=== PATIENT | female | born 2000 | race Hispanic/Latino ===

== ENCOUNTER 2019-06-02 20:50 | Inpatient (IN) | payer OTHER ==
[2019-06-02] MEDS ORDERED: TERBUTALINE 1 MG/1 ML INJ IVP PRN (22:17)
[2019-06-02] MEDS ORDERED: AMPICILLIN/NS 2 GM/100 ML 2 GM/100 ML BAG IV ONE (22:17)
[2019-06-02] MEDS ORDERED: ONDANSETRON 4 MG/2 ML INJ IV PRN (22:17)
[2019-06-02] MEDS ORDERED: TERBUTALINE 1 MG/1 ML INJ SUB-Q PRN (22:17)
[2019-06-02] MEDS ORDERED: MORPHINE 2 MG/1 ML INJ IV PRN (22:22)
[2019-06-02 22:35] LABS: Hematocrit 28.5 % (30.3-42.9); Hemoglobin 9.6 gm/dl (10.1-14.3); Mean Corpuscular HGB Conc 34 % (30-34); Mean Corpuscular Volume 82 fl (79-97); Platelet Count 326 K/mm3 (140-440); Red Blood Count 3.48 M/mm3 (3.65-5.03)
[2019-06-02] MEDS: AMPICILLIN/NS 2 GM/100 ML 2 GM/100 ML BAG IV SCH (23:10)
[2019-06-02] MEDS: LACTATED RINGERS 1,000 ML IV SCH (23:14)
[2019-06-02] MEDS: BETAMET ACET/BETAMET NA PH 6 MG/ML INJ 5 ML MDV IM SCH (23:14)
[2019-06-02 23:48] LABS: Bilirubin,Urine NEG (Negative); Blood,Urine NEG (Negative); Color,Urine Yellow (Yellow); Mucus,Urine FEW /HPF; Protein,Urine <15 mg/dL mg/dL (Negative)
[2019-06-03] MEDS ORDERED: ceFAZolin/NS 1 GM/50 ML 1 GM/50 ML BAG IV SCH (02:00)
[2019-06-03] MEDS: AMPICILLIN/NS 2 GM/100 ML 2 GM/100 ML BAG IV SCH ×3 (05:06→17:47)
[2019-06-03] MEDS: LACTATED RINGERS 1,000 ML IV SCH ×4 (05:06→23:13)
--- NOTE | 2019-06-03 07:58 | Ultrasound Report ---
ULTRASOUND OBSTETRIC FOLLOW-UP ULTRASOUND BIOPHYSICAL PROFILE INDICATION / CLINICAL INFORMATION: LABOR. Clinical Gestational Age (GA): 35 weeks 2 days COMPARISON: None available. FINDINGS: BREATHING MOVEMENT = 0 GROSS BODY MOVEMENT = 2 TONE = 2 QUALITATIVE AMNIOTIC FLUID VOLUME = 2 TOTAL BIOPHYSICAL SCORE = 6/8 HEART RATE (beats per minute): 125 bpm AMNIOTIC FLUID INDEX (cm) = 11.8 cm (normal = 7-24 cm) PRESENTATION: Cephalic. BPD 9.0 cm, 36 weeks 3 days HC 31.0 cm, 34 weeks 5 days AC 31.6 cm, 35 weeks 3 days Femur length 6.7 cm, 34 weeks 4 days Estimated weight is 2629 g. anatomical survey was not performed. ADDITIONAL FINDINGS: Placenta is anteriorly located without previa. IMPRESSION: 1. Biophysical Score = 6/8 2. Single viable IUP in a cephalic presentation with estimated gestational age of 35 weeks 2 days. No sonographic abnormality. Signer Name: Johanna Castillo MD Signed: 06/03/2019 7:54 AM Workstation Name: [id number]
--- NOTE | 2019-06-03 10:38 | History and Physical Report ---
History of Present Illness Date of examination: 06/03/19 Date of admission: 06/02/19 21:32 Chief complaint: Leaking fluid History of present illness: 18yo G 1 P 0 @ 35 weeks 2 days here with c/o leaking fluid since 06/02/19 @ 19:40. +Nitrazine test in triage. Pt denies recent sexual intercourse. OBUS done 06/02/19: EGA 35w2d, EVERARDO 11.8cm, BPP 6/8. She reports +FMs & occasional UCs but denies VB. She is a [facility] patient. No records are available. Pt reports she was seen at the office yesterday and informed she is anemic. Iron pills sent to the pharmacy but pt never had the time to pick them up. Past History Past Medical History: no pertinent history Past Surgical History: no surgical history Family/Genetic History: diabetes Social history: single, lives with family, full code. denies: smoking, alcohol abuse, prescription drug abuse, IV drug use - Obstetrical History Expected Date of Delivery: 07/06/19 Actual Gestation: 35 Week(s) 2 Day(s) : 1 Para: 0 Hx # Term Pregnancies: 0 Number of Pregnancies: 0 Spontaneous Abortions: 0 Induced : 0 Number of Living Children: 0 Medications and Allergies Allergies Allergy/AdvReac Type Severity Reaction Status Date / Time No Known Allergies Allergy Verified 06/02/19 21:37 Active Meds: Active Medications Lactated Ringer's (Lactated Ringers) 1,000 mls @ 125 mls/hr IV DIRECT BRITNEY Last Admin: 06/03/19 06:56 Dose: 125 mls/hr Documented by: Ampicillin Sodium (Ampicillin/Ns 2 Gm/100 Ml) 2 gm in 100 mls @ 100 mls/hr IV Q6HR BRITNEY; Protocol Stop: 06/04/19 18:59 Last Admin: 06/03/19 05:06 Dose: 100 mls/hr Documented by: Morphine Sulfate (Morphine) 2 mg IV Q4H PRN PRN Reason: Pain, Moderate (4-6) Ondansetron HCl (Zofran) 4 mg IV Q8H PRN PRN Reason: Nausea And Vomiting Terbutaline Sulfate (Brethine) 0.25 mg SUB-Q ONCE PRN PRN Reason: Hyperstimulation/Hypertonicity Terbutaline Sulfate (Brethine) 0.25 mg IVP ONCE PRN PRN Reason: Hyperstimulation/Hypertonicity Review of Systems All systems: negative - Vital Signs Vital signs: Vital Signs Temp Pulse Resp BP Pulse Ox 98.5 F 81 18 123/75 99 06/02/19 21:43 06/02/19 21:43 06/02/19 21:43 06/02/19 21:43 06/02/19 21:43 Temp Pulse Resp BP Pulse Ox 97.8 F 85 16 120/64 87 06/03/19 08:44 06/03/19 10:32 06/03/19 08:44 06/03/19 10:31 06/03/19 10:32 - Obstetrical FHR: auscultation normal, category 1 FHR comments: baseline 120, moderate variability, 15x15 accels, no decels Uterine Contraction Monitor Mode: External Cervical Dilatation: 2 Cervical Effacement Percentage: 50 station: -3 Uterine Contraction Pattern: Irregular Results Result Diagrams: 06/02/19 22:00 Abnormal lab results 06/02/19 Range/Units 22:00 WBC 14.4 H (4.5-11.0) K/mm3 RBC 3.48 L (3.65-5.03) M/mm3 Hgb 9.6 L (10.1-14.3) gm/dl Hct 28.5 L (30.3-42.9) % RDW 13.0 L (13.2-15.2) % All other labs normal. Assessment and Plan - Patient Problems (1) 35 weeks gestation of Current Visit: Yes Status: Acute (2) premature rupture of membranes in third trimester Current Visit: Yes Status: Acute Plan to address problem: Admit to L&D with routine labor orders Continue current management initiated by Dr. House: 2 doses of Celestone 12mg IM x24 hrs, Ampicillin 2gm IV q6hr No fluid noted during SVE and EVERARDO was 11.8. If no active labor, will repeat EVERARDO @ 21:00 (3) Anemia affecting first Current Visit: Yes Status: Acute Plan to address problem: Iron therapy initiated
[2019-06-03] MEDS: BETAMET ACET/BETAMET NA PH 6 MG/ML INJ 5 ML MDV IM SCH ×2 (11:27→23:14)
[2019-06-03] MEDS: PRENATAL VIT27-FE FUMARATE-FOLIC ACID VIT TAB PO SCH (11:39)
[2019-06-03] MEDS ORDERED: FERROUS SULFATE 325 MG TAB PO ONE (11:48)
[2019-06-03] MEDS: FERROUS SULFATE 325 MG TAB PO SCH ×2 (14:20→22:32)
[2019-06-03] MEDS ORDERED: FAMOTIDINE 20 MG/2 ML INJ IV ONE (14:30)
[2019-06-03 15:49] LABS: Amphetamine Screen,Urine PRESUMPTIVE NEGATIVE; Benzodiazepines Screen,Urine PRESUMPTIVE NEGATIVE; Cocaine Screen,Urine PRESUMPTIVE NEGATIVE; Methadone Screen,Urine PRESUMPTIVE NEGATIVE; Opiate Screen,Urine PRESUMPTIVE NEGATIVE
[2019-06-03 16:02] LABS: Cannabinoid Screen,Urine PRESUMPTIVE POSITIVE
--- NOTE | 2019-06-03 20:58 | Event Note ---
Date: 06/03/19 Assumed care of patient at 5:30 PM. Patient is here for possible ruptured membranes. Performed speculum exam: moderate amount of pooling noted in p osterior vagina, clear fluid. Fern test positive. Consulted with Dr. Scott re: this patient. Dr. Scott states to observe patient overnight and start Pitocin tomorrow morning. Patient is due to get another Celestone injection tonight. IV Ampicillin continues.
--- NOTE | 2019-06-03 22:04 | Ultrasound Report ---
US OB limited INDICATION / CLINICAL INFORMATION: Premature Rupture of Membranes. COMPARISON: 06/02/2019 FINDINGS: Viable single intrauterine gestation with heart rate 144 bpm. Fetus is in cephalic presentation . The EVERARDO is 9. Signer Name: Gurpreet Tamayo MD Signed: 06/03/2019 10:00 PM Workstation Name: [id number]
[2019-06-03] MEDS ORDERED: BETAMET ACET/BETAMET NA PH 6 MG/ML INJ 5 ML MDV IM ONE (23:00)
[2019-06-04] MEDS: AMPICILLIN/NS 2 GM/100 ML 2 GM/100 ML BAG IV SCH ×3 (00:23→12:37)
--- NOTE | 2019-06-04 08:19 | Progress Note ---
Assessment and Plan A: at 35 weeks, 3 days gestation. PPROM. P: Pitocin augmentation of labor. Discussed with patient Pitocin for augmentation of labor. Patient consented to Pitocin augmentation of labor. Continue IV antibiotics. Subjective - Subjective Date of service: 06/04/19 Principal diagnosis: PPROM at 35 weeks, 3 days gestation Interval history: Patient is here for PPROM. She has received full course of steroids and is receiving IV Ampicillin. SROM has been confirmed with SSE and fern test. SVE 2.5/70/-3. Patient is to receive Pitocin for augmentation of labor. Pitocin orders put in; discussed Pitocin augmentation of labor with patient and patient consented to Pitocin augmentation of labor. Consulted Dr. Melvin re: this patient and he states he agrees with POC. Patient reports: loss of fluid, movement normal, no new complaints, no vaginal bleeding Objective - Vital Signs Vital Signs: Vital Signs - 12hr 06/03/19 06/03/19 06/03/19 20:22 20:27 20:30 Temperature Pulse Rate 74 74 74 Respiratory Rate Blood Pressure 106/56 Blood Pressure [Left] O2 Sat by Pulse 98 97 94 Oximetry 06/03/19 06/03/19 06/03/19 20:32 20:37 20:42 Temperature Pulse Rate 78 83 78 Respiratory Rate Blood Pressure Blood Pressure [Left] O2 Sat by Pulse 97 97 97 Oximetry 06/03/19 06/03/19 06/03/19 20:47 20:52 20:54 Temperature Pulse Rate 103 H 89 88 Respiratory Rate Blood Pressure Blood Pressure [Left] O2 Sat by Pulse 97 95 94 Oximetry 06/03/19 06/03/19 06/03/19 20:57 21:02 21:07 Temperature Pulse Rate 88 88 76 Respiratory Rate Blood Pressure Blood Pressure [Left] O2 Sat by Pulse 95 98 98 Oximetry 06/03/19 06/03/19 06/03/19 21:12 21:17 21:22 Temperature Pulse Rate 75 83 85 Respiratory Rate Blood Pressure Blood Pressure [Left] O2 Sat by Pulse 98 98 99 Oximetry 06/03/19 06/03/19 06/03/19 21:23 21:27 21:30 Temperature Pulse Rate 77 90 86 Respiratory Rate Blood Pressure 98/54 Blood Pressure [Left] O2 Sat by Pulse 91 88 Oximetry 06/03/19 06/03/19 06/03/19 21:32 21:37 21:42 Temperature Pulse Rate 80 90 91 H Respiratory Rate Blood Pressure Blood Pressure [Left] O2 Sat by Pulse 98 97 95 Oximetry 06/03/19 06/03/19 06/03/19 21:43 21:47 21:48 Temperature 98.7 F Pulse Rate 95 H 93 H 90 Respiratory 18 Rate Blood Pressure Blood Pressure 126/58 [Left] O2 Sat by Pulse 92 99 96 Oximetry 06/03/19 06/03/19 06/03/19 21:50 21:52 21:57 Temperature Pulse Rate 80 82 78 Respiratory Rate Blood Pressure 126/58 Blood Pressure [Left] O2 Sat by Pulse 96 97 Oximetry 06/03/19 06/03/19 06/03/19 22:02 22:07 22:12 Temperature Pulse Rate 89 80 90 Respiratory Rate Blood Pressure Blood Pressure [Left] O2 Sat by Pulse 97 97 95 Oximetry 06/03/19 06/03/19 06/03/19 22:17 22:22 22:24 Temperature Pulse Rate 88 94 H 92 H Respiratory Rate Blood Pressure Blood Pressure [Left] O2 Sat by Pulse 98 95 93 Oximetry 06/03/19 06/03/19 06/03/19 22:27 22:31 22:32 Temperature Pulse Rate 86 79 84 Respiratory Rate Blood Pressure 104/51 Blood Pressure [Left] O2 Sat by Pulse 97 96 Oximetry 06/03/19 06/03/19 06/03/19 22:35 22:37 22:42 Temperature Pulse Rate 89 87 95 H Respiratory Rate Blood Pressure Blood Pressure [Left] O2 Sat by Pulse 92 98 97 Oximetry 06/03/19 06/03/19 06/03/19 22:47 22:52 22:53 Temperature Pulse Rate 75 94 H 101 H Respiratory Rate Blood Pressure Blood Pressure [Left] O2 Sat by Pulse 97 95 88 Oximetry 06/03/19 06/03/19 06/03/19 23:00 23:05 23:10 Temperature Pulse Rate 70 81 Respiratory Rate Blood Pressure Blood Pressure [Left] O2 Sat by Pulse 97 98 98 Oximetry 06/03/19 06/03/19 06/03/19 23:15 23:19 23:20 Temperature Pulse Rate 83 85 91 H Respiratory Rate Blood Pressure Blood Pressure [Left] O2 Sat by Pulse 96 92 97 Oximetry 06/03/19 06/03/19 06/03/19 23:25 23:30 23:35 Temperature Pulse Rate 79 76 76 Respiratory Rate Blood Pressure Blood Pressure [Left] O2 Sat by Pulse 98 98 98 Oximetry 06/03/19 06/03/19 06/03/19 23:40 23:45 23:50 Temperature Pulse Rate 76 82 76 Respiratory Rate Blood Pressure Blood Pressure [Left] O2 Sat by Pulse 98 98 98 Oximetry 06/03/19 06/04/19 06/04/19 23:55 00:00 00:05 Temperature Pulse Rate 80 81 93 H Respiratory Rate Blood Pressure Blood Pressure [Left] O2 Sat by Pulse 97 97 96 Oximetry 06/04/19 06/04/19 06/04/19 00:10 00:15 00:20 Temperature Pulse Rate 70 77 79 Respiratory Rate Blood Pressure Blood Pressure [Left] O2 Sat by Pulse 97 97 96 Oximetry 06/04/19 06/04/19 06/04/19 00:24 00:25 00:29 Temperature 98.2 F Pulse Rate 70 83 75 Respiratory 18 Rate Blood Pressure 108/54 Blood Pressure 108/54 [Left] O2 Sat by Pulse 97 97 Oximetry 06/04/19 06/04/19 06/04/19 00:30 00:35 00:40 Temperature Pulse Rate 87 74 80 Respiratory Rate Blood Pressure 104/52 Blood Pressure [Left] O2 Sat by Pulse 97 96 96 Oximetry 06/04/19 06/04/19 06/04/19 00:45 00:50 00:55 Temperature Pulse Rate 82 86 83 Respiratory Rate Blood Pressure Blood Pressure [Left] O2 Sat by Pulse 96 96 95 Oximetry 06/04/19 06/04/19 06/04/19 00:58 01:00 01:04 Temperature Pulse Rate 92 H 84 84 Respiratory Rate Blood Pressure Blood Pressure [Left] O2 Sat by Pulse 94 94 94 Oximetry 06/04/19 06/04/19 06/04/19 01:05 01:09 01:10 Temperature Pulse Rate 81 84 82 Respiratory Rate Blood Pressure Blood Pressure [Left] O2 Sat by Pulse 94 94 94 Oximetry 06/04/19 06/04/19 06/04/19 01:14 01:15 01:19 Temperature Pulse Rate 84 85 86 Respiratory Rate Blood Pressure Blood Pressure [Left] O2 Sat by Pulse 94 94 94 Oximetry 06/04/19 06/04/19 06/04/19 01:20 01:25 01:30 Temperature Pulse Rate 80 98 H 70 Respiratory Rate Blood Pressure Blood Pressure [Left] O2 Sat by Pulse 94 98 96 Oximetry 06/04/19 06/04/19 06/04/19 01:31 01:35 01:40 Temperature Pulse Rate 67 68 70 Respiratory Rate Blood Pressure 112/54 Blood Pressure [Left] O2 Sat by Pulse 98 96 Oximetry 06/04/19 06/04/19 06/04/19 01:45 01:50 01:55 Temperature Pulse Rate 68 70 70 Respiratory Rate Blood Pressure Blood Pressure [Left] O2 Sat by Pulse 96 96 97 Oximetry 06/04/19 06/04/19 06/04/19 02:00 02:05 02:06 Temperature Pulse Rate 78 84 106 H Respiratory Rate Blood Pressure Blood Pressure [Left] O2 Sat by Pulse 95 95 91 Oximetry 06/04/19 06/04/19 06/04/19 02:10 02:15 02:16 Temperature Pulse Rate 73 76 73 Respiratory Rate Blood Pressure Blood Pressure [Left] O2 Sat by Pulse 95 95 94 Oximetry 06/04/19 06/04/19 06/04/19 02:20 02:21 02:23 Temperature 98.0 F Pulse Rate 82 64 69 Respiratory 18 Rate Blood Pressure Blood Pressure 112/64 [Left] O2 Sat by Pulse 95 94 94 Oximetry 06/04/19 06/04/19 06/04/19 02:25 02:30 02:35 Temperature Pulse Rate 84 77 74 Respiratory Rate Blood Pressure 99/55 Blood Pressure [Left] O2 Sat by Pulse 95 96 95 Oximetry 06/04/19 06/04/19 06/04/19 02:40 02:42 02:45 Temperature Pulse Rate 81 71 71 Respiratory Rate Blood Pressure Blood Pressure [Left] O2 Sat by Pulse 97 94 94 Oximetry 06/04/19 06/04/19 06/04/19 02:50 02:55 02:56 Temperature Pulse Rate 76 81 76 Respiratory Rate Blood Pressure Blood Pressure [Left] O2 Sat by Pulse 93 94 93 Oximetry 06/04/19 06/04/19 06/04/19 03:00 03:01 03:05 Temperature Pulse Rate 82 83 73 Respiratory Rate Blood Pressure Blood Pressure [Left] O2 Sat by Pulse 92 94 94 Oximetry 06/04/19 06/04/19 06/04/19 03:08 03:10 03:15 Temperature Pulse Rate 75 76 78 Respiratory Rate Blood Pressure Blood Pressure [Left] O2 Sat by Pulse 94 94 94 Oximetry 06/04/19 06/04/19 06/04/19 03:19 03:20 03:25 Temperature Pulse Rate 76 80 75 Respiratory Rate Blood Pressure Blood Pressure [Left] O2 Sat by Pulse 94 94 94 Oximetry 06/04/19 06/04/19 06/04/19 03:30 03:34 03:35 Temperature Pulse Rate 79 104 H 71 Respiratory Rate Blood Pressure 104/53 Blood Pressure [Left] O2 Sat by Pulse 93 94 96 Oximetry 06/04/19 06/04/19 06/04/19 03:40 03:41 03:45 Temperature Pulse Rate 67 80 73 Respiratory Rate Blood Pressure Blood Pressure [Left] O2 Sat by Pulse 95 94 94 Oximetry 06/04/19 06/04/19 06/04/19 03:48 03:50 03:54 Temperature Pulse Rate 65 62 71 Respiratory Rate Blood Pressure Blood Pressure [Left] O2 Sat by Pulse 94 92 94 Oximetry 06/04/19 06/04/19 06/04/19 03:55 04:00 04:02 Temperature Pulse Rate 68 75 72 Respiratory Rate Blood Pressure Blood Pressure [Left] O2 Sat by Pulse 94 94 94 Oximetry 06/04/19 06/04/19 06/04/19 04:12 04:17 04:22 Temperature Pulse Rate 77 74 78 Respiratory Rate Blood Pressure Blood Pressure [Left] O2 Sat by Pulse 96 97 97 Oximetry 06/04/19 06/04/19 06/04/19 04:27 04:30 04:32 Temperature Pulse Rate 70 80 67 Respiratory 18 Rate Blood Pressure 98/55 Blood Pressure 98/55 [Left] O2 Sat by Pulse 97 97 98 Oximetry 06/04/19 06/04/19 06/04/19 04:37 04:42 04:47 Temperature Pulse Rate 67 70 75 Respiratory Rate Blood Pressure Blood Pressure [Left] O2 Sat by Pulse 97 97 95 Oximetry 06/04/19 06/04/19 06/04/19 04:52 04:57 05:02 Temperature Pulse Rate 70 76 82 Respiratory Rate Blood Pressure Blood Pressure [Left] O2 Sat by Pulse 96 95 95 Oximetry 06/04/19 06/04/19 06/04/19 05:06 05:07 05:12 Temperature Pulse Rate 71 80 74 Respiratory Rate Blood Pressure Blood Pressure [Left] O2 Sat by Pulse 94 95 94 Oximetry 06/04/19 06/04/19 06/04/19 05:17 05:20 05:22 Temperature Pulse Rate 68 68 67 Respiratory Rate Blood Pressure Blood Pressure [Left] O2 Sat by Pulse 95 94 94 Oximetry 06/04/19 06/04/19 06/04/19 05:27 05:30 05:32 Temperature Pulse Rate 70 68 83 Respiratory Rate Blood Pressure 91/50 Blood Pressure [Left] O2 Sat by Pulse 97 91 96 Oximetry 06/04/19 06/04/19 06/04/19 05:37 05:40 05:42 Temperature Pulse Rate 69 84 72 Respiratory Rate Blood Pressure Blood Pressure [Left] O2 Sat by Pulse 95 94 96 Oximetry 06/04/19 06/04/19 06/04/19 05:47 05:49 05:52 Temperature Pulse Rate 72 73 76 Respiratory Rate Blood Pressure Blood Pressure [Left] O2 Sat by Pulse 96 94 95 Oximetry 06/04/19 06/04/19 06/04/19 05:57 06:00 06:01 Temperature 98.0 F Pulse Rate 71 90 Respiratory 18 Rate Blood Pressure 97/53 Blood Pressure [Left] O2 Sat by Pulse 94 97 Oximetry 06/04/19 06/04/19 06/04/19 06:02 06:07 06:10 Temperature Pulse Rate 67 80 74 Respiratory Rate Blood Pressure Blood Pressure [Left] O2 Sat by Pulse 96 96 89 Oximetry 06/04/19 06/04/19 06/04/19 06:12 06:17 06:22 Temperature Pulse Rate 71 66 Respiratory Rate Blood Pressure Blood Pressure [Left] O2 Sat by Pulse 98 96 100 Oximetry 06/04/19 06/04/19 06/04/19 06:28 06:31 06:33 Temperature Pulse Rate 81 71 69 Respiratory Rate Blood Pressure 102/52 Blood Pressure [Left] O2 Sat by Pulse 97 96 Oximetry 06/04/19 06/04/19 06/04/19 06:34 06:38 06:43 Temperature Pulse Rate 74 72 73 Respiratory Rate Blood Pressure Blood Pressure [Left] O2 Sat by Pulse 94 98 98 Oximetry 06/04/19 06/04/19 06/04/19 06:48 06:52 06:53 Temperature Pulse Rate 69 83 73 Respiratory Rate Blood Pressure Blood Pressure [Left] O2 Sat by Pulse 99 92 98 Oximetry 06/04/19 06/04/19 06/04/19 06:57 06:58 07:03 Temperature Pulse Rate 74 78 69 Respiratory Rate Blood Pressure Blood Pressure [Left] O2 Sat by Pulse 93 98 100 Oximetry 06/04/19 06/04/19 06/04/19 07:08 07:11 07:13 Temperature 98.3 F Pulse Rate 72 75 Respiratory 18 Rate Blood Pressure Blood Pressure [Left] O2 Sat by Pulse 98 97 Oximetry 06/04/19 06/04/19 06/04/19 07:18 07:21 07:23 Temperature Pulse Rate 78 82 67 Respiratory Rate Blood Pressure Blood Pressure [Left] O2 Sat by Pulse 98 92 98 Oximetry 06/04/19 06/04/19 06/04/19 07:28 07:33 07:38 Temperature Pulse Rate 76 65 64 Respiratory Rate Blood Pressure Blood Pressure [Left] O2 Sat by Pulse 97 97 97 Oximetry 06/04/19 06/04/19 06/04/19 07:43 07:49 07:54 Temperature Pulse Rate 65 80 82 Respiratory Rate Blood Pressure Blood Pressure [Left] O2 Sat by Pulse 96 99 99 Oximetry 06/04/19 06/04/19 07:58 08:10 Temperature Pulse Rate 80 84 Respiratory Rate Blood Pressure Blood Pressure [Left] O2 Sat by Pulse 94 84 Oximetry - Exam Abdomen: Present: normal appearance, soft. Absent: distention, tenderness, guarding, rigidity Uterus: Present: fundal height above umbilicus. Absent: tenderness FHR: category 1 Uterine Contraction Monitor Mode: External Cervical Dilatation: 2.5 Cervical Effacement Percentage: 70 station: -3 Uterine Contraction Pattern: Irregular Uterine Contraction Intensity: Mild - Labs Labs: Abnormal Labs 06/02/19 22:00 WBC 14.4 H RBC 3.48 L Hgb 9.6 L Hct 28.5 L RDW 13.0 L Laboratory Results - last 24 hr 06/03/19 06/03/19 19:06 Unknown Urine Opiates Screen Presumptive negative Urine Methadone Screen Presumptive negative Ur Barbiturates Screen Presumptive negative Ur Phencyclidine Scrn Presumptive negative Ur Amphetamines Screen Presumptive negative U Benzodiazepines Scrn Presumptive negative Urine Cocaine Screen Presumptive negative U Marijuana (THC) Screen Presumptive positive Drugs of Abuse Note Disclamer Syphilis IgG Antibody Non-reactive
[2019-06-04] MEDS ORDERED: OXYTOCIN DRIP 30 UNITS/500 ML BAG IV SCH (08:30)
[2019-06-04] MEDS: FERROUS SULFATE 325 MG TAB PO SCH (09:15)
[2019-06-04] MEDS: PRENATAL VIT27-FE FUMARATE-FOLIC ACID VIT TAB PO SCH (09:15)
[2019-06-04] MEDS: LACTATED RINGERS 1,000 ML IV SCH (09:23)
[2019-06-04] MEDS ORDERED: fentaNYL 100 MCG/2 ML INJ IV ONE (15:30)
[2019-06-04] MEDS ORDERED: ePHEDrine SULFATE 50 MG/1 ML INJ ONE (16:13)
[2019-06-04] MEDS ORDERED: DEXMEDETOMIDINE 200 MCG/2 ML VIAL IV ONE (16:26)
[2019-06-04] MEDS ORDERED: NALOXONE 2 MG/2 ML INJ IV PRN (16:43)
[2019-06-04] MEDS ORDERED: ePHEDrine SULFATE 50 MG/1 ML INJ IV PRN (16:43)
--- NOTE | 2019-06-04 16:44 | Anesthesia Consultation ---
Anesthesia Consult and Med Hx Date of service: 06/04/19 - Airway Anesthetic Teeth Evaluation: Good ROM Head & Neck: Adequate Mental/Hyoid Distance: Adequate Mallampati Class: Class II Intubation Access Assessment: Good - Pulmonary Exam CTA: Yes - Cardiac Exam Cardiac Exam: RRR - Pre-Operative Health Status ASA Pre-Surgery Classification: ASA2, Emergency Proposed Anesthetic Plan: Epidural - Pulmonary Hx Asthma: No COPD: No Hx Pneumonia: No - Cardiovascular System Hx Hypertension: No - Central Nervous System Hx Seizures: No Hx Psychiatric Problems: No - Endocrine Hx Renal Disease: No Hx End Stage Renal Disease: No Hx Hypothyroidism: No Hx Hyperthyroidism: No - Hematic Hx Anemia: Yes Hx Sickle Cell Disease: No - Other Systems Hx Alcohol Use: No
--- NOTE | 2019-06-04 16:46 | Progress Note ---
Labor Epidural - Labor Epidural Start Time: 16:28 Stop Time: 16:34 Performed by:: STEPHEN BROWN Procedure: Patient is requesting a laboring epidural for laboring pain. Patient IDed, H&P reviewed, all questions and concerns were answered, and consent was signed. Timeout was performed at bedside. Patient in sitting position. Sterile prep and drape was performed. 3 ml of 1% lidocaine skin wheal at L3- L 4. 18-gauge Touhy epidural needle was advanced to loss of resistance with air technique. Negative CSF negative blood. Epidural catheter advanced to 15 centimeters. - Aspiration - test dose. Sterile dressing applied. Patient tolerated procedure.
[2019-06-04] MEDS ORDERED: fentaNYL-BUPIV 2 MCG/ML-0.125% 200 MCG/100 ML BAG EPIDURAL SCH (17:00)
[2019-06-04] MEDS: AMPICILLIN/NS 1 GM/50 ML 1 GM/50 ML BAG IV SCH ×2 (18:43→22:50)
[2019-06-04 19:21] LABS: Hepatitis C Virus Antibody Non-Reactive (NonReactive)
[2019-06-04] MEDS ORDERED: OXYTOCIN 20 UNIT/1000ML DRIP 20,000 MILLIUNITS/1,000 ML BAG IV ONE (22:20)
[2019-06-05] MEDS ORDERED: ONDANSETRON 4 MG/2 ML INJ IV PRN (02:23)
[2019-06-05] MEDS ORDERED: MAGNESIUM HYDROXIDE (MOM) ORAL LIQD UDC PO PRN ×2 (02:23→18:43)
[2019-06-05] MEDS ORDERED: LANOLIN/ZINC/DIMETHICONE (LANSINOH) 7 GM TP PRN ×2 (02:23→18:43)
[2019-06-05] MEDS ORDERED: HYDROcodone/ACETAMINOPHEN 5-325 MG TAB PO PRN ×2 (02:23→18:43)
[2019-06-05] MEDS ORDERED: WITCH HAZEL/ GLYCERIN PAD TP PRN ×2 (02:23→18:43)
[2019-06-05] MEDS ORDERED: diphenhydrAMINE 25 MG CAP PO PRN ×2 (02:23→18:43)
[2019-06-05 02:28] LABS: Basophils # (Auto) 0.1 K/mm3 (0.0-0.1); Basophils % (Auto) 0.4 % (0.0-1.8); Hematocrit 30.6 % (30.3-42.9); Hemoglobin 10.2 gm/dl (10.1-14.3); Lymphocytes # (Auto) 1.3 K/mm3 (1.2-5.4); Lymphocytes % (Auto) 7.6 % (13.4-35.0); Mean Corpuscular HGB Conc 33 % (30-34); Mean Corpuscular Volume 81 fl (79-97); Monocytes # (Auto) 1.4 K/mm3 (0.0-0.8); Monocytes % (Auto) 8.5 % (0.0-7.3); Platelet Count 206 K/mm3 (140-440); Red Blood Count 3.77 M/mm3 (3.65-5.03); Red Cell Distribution Width 12.7 % (13.2-15.2)
--- NOTE | 2019-06-05 02:35 | Procedure Note ---
OB Delivery Note - Delivery Date of Delivery: 06/05/19 Surgeon: LOUIE CALABRESE Estimated blood loss: 200cc - Vaginal Delivery presentation: vertex Delivery position: OA Intrapartum events: labor-<37 weeks Delivery induction: none Delivery augmentation: pitocin Delivery monitor: external FHT, external uterine Route of delivery: Delivery placenta: spontaneous Delivery cord: 3 umbilical vessels Episiotomy: none Delivery laceration: none Anesthesia: epidural Delivery comments: Spontaneous vaginal delivery at 01:50 of liveborn male infant weighing 6 lb. 5 oz. over intact perineum with apgars of 8/9. Baby placed immediately skin to skin with mom after delivery. Spontaneous cry and respirations. Baby dried and bulb suctioned. Spontaneous cry and respirations. 3 vessel cord double clamped and cut. Baby taken to radiant warmer for evaluation by NICU team. Spontaneous delivery of intact placenta and membranes by sanchez mechanism. EBL 200 cc. Pitocin to IV fuids after delivery of placenta. Fundus firm and midline. No lacerations noted. Vaginal sweep negative. Sponge count correct.
[2019-06-05] MEDS: IBUPROFEN 600 MG TAB PO SCH ×3 (08:47→21:11)
[2019-06-05 16:11] LABS: Hematocrit 30.3 % (30.3-42.9); Hemoglobin 10.2 gm/dl (10.1-14.3)
[2019-06-05] MEDS ORDERED: IBUPROFEN 600 MG TAB PO SCH (18:43)
--- NOTE | 2019-06-05 19:27 | Post Anesthesia Evaluation ---
- Post Anesthesia Evaluation Patient Participated: Yes Airway Patent: Yes Stable Respiratory Function: Yes Nausea/Vomiting: No Temp > 96.8F: Yes Pain Manageable: Yes Adequeate Hydration: Yes Anesthesia Complications: No Block Receding Appropriately: Yes Patient on Ventilator: No
[2019-06-05] MEDS: DOCUSATE SODIUM 100 MG CAP PO SCH (21:23)
[2019-06-05] MEDS ORDERED: FERROUS SULFATE 325 MG TAB PO SCH (22:00)
[2019-06-06] MEDS: IBUPROFEN 600 MG TAB PO SCH ×2 (06:34→09:06)
[2019-06-06] MEDS: DOCUSATE SODIUM 100 MG CAP PO SCH (09:07)
[2019-06-06 10:09] LABS: Hematocrit 27.7 % (30.3-42.9); Hemoglobin 9.2 gm/dl (10.1-14.3); Mean Corpuscular HGB Conc 33 % (30-34); Mean Corpuscular Volume 81 fl (79-97); Platelet Count 207 K/mm3 (140-440); Red Blood Count 3.43 M/mm3 (3.65-5.03); Red Cell Distribution Width 12.9 % (13.2-15.2)
--- NOTE | 2019-06-06 11:35 | Progress Note ---
Assessment and Plan - Patient Problems (1) Status post normal vaginal delivery Current Visit: Yes Status: Acute Plan to address problem: PPD 2 - stable Discharge to home today Follow-up at [facility] as needed or in 6 weeks for exam (2) delivery Current Visit: Yes Status: Acute (3) Single live Current Visit: Yes Status: Acute (4) Anemia affecting first Current Visit: Yes Status: Acute Plan to address problem: Iron therapy re-initiated Eat iron-rich foods (5) Leukocytosis Current Visit: Yes Status: Resolved Plan to address problem: Repeat CBC ordered Subjective - Subjective Date of service: 06/06/19 Principal diagnosis: PPD #2; s/p Interval history: see [facility] - H&P, Event Note, OB Progress Note and OB Delivery Procedure Note Patient reports: appetite normal, voiding normally, pain well controlled, ambulating normally, no dizzy ambulation : doing well Objective - Vital Signs Latest vital signs: Vital Signs Temp Pulse Resp BP Pulse Ox 06/06/19 08:48 97.9 F 74 20 111/62 96 06/06/19 06:34 18 06/06/19 00:40 97.7 F 17 06/06/19 00:23 82 105/51 96 06/05/19 22:11 16 06/05/19 21:11 18 06/05/19 17:10 97.7 F 93 H 14 111/56 97 06/05/19 13:08 97.8 F 90 18 112/55 99 Intake and Output 06/05/19 06/06/19 06/06/19 23:59 07:59 15:59 Intake Total 1200 480 120 Balance 1200 480 120 Intake: Oral 1200 480 120 Other: Total, Intake Amount 240 240 120 Voiding Method Toilet # Voids 1 Void 1 1 1 # Bowel Movements 1 - Exam Abdomen: Present: normal appearance, soft Vulva: both: normal Uterus: Present: normal, firm, fundal height at umbilicus Extremities: Present: normal Comments: small lochia - Labs Labs: Abnormal lab results 06/06/19 Range/Units 09:26 WBC 11.4 H (4.5-11.0) K/mm3 RBC 3.43 L (3.65-5.03) M/mm3 Hgb 9.2 L (10.1-14.3) gm/dl Hct 27.7 L (30.3-42.9) % MCH 27 L (28-32) pg RDW 12.9 L (13.2-15.2) %
--- NOTE | 2019-06-06 11:41 | Discharge Summary ---
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 Notified:: n/a Additional Physician Instructions: UDS positive for THC Primary care physician: JOSE MANUEL ECHEVARRIA MD Hospitalization Reason for admission: IUP - , rupture of membranes Delivery: Episiotomy: none Laceration: none Other procedures: none complications: none Discharge diagnosis: delivery baby: male Hospital course: Uncomplicated Condition at discharge: Stable Disposition: NE-01 TO HOME OR SELFCARE - Discharge Diagnoses (1) Status post normal vaginal delivery Status: Acute (2) delivery Status: Acute (3) Single live Status: Acute (4) Anemia affecting first Status: Acute Comment: Asymptomatic Continue iron therapy Eat iron-rich foods (5) Leukocytosis Status: Resolved (6) Positive urine drug screen Status: Acute Comment: Positive marijuana Marijuana cessation counseling provided Case Management Consult ordered Plan - Discharge Medications Prescriptions: Ferrous Sulfate [Feosol 325 MG tab] 325 mg PO BID #60 tablet - Provider Discharge Summary Activity: routine, no sex for 6 weeks, no heavy lifting 4 weeks, no strenuous exercise Diet: routine Instructions: routine Additional instructions: [] Smoking cessation referral if applicable(refer to patient education folder for contact #) [] Refer to [facility]'s [facility] Booklet Call your doctor immediately for: * Fever > 100.5 * Heavy vaginal bleeding ( >1 pad per hour) * Severe persistent headache * Shortness of breath * Reddened, hot, painful area to leg or breast * Drainage or odor from incision. * Keep incision clean and dry at all times and follow doctor's instructions regarding bathing/showering - Follow up plan Follow up: JOSE MANUEL ECHEVARRIA MD [Primary Care Provider] - 6 Weeks (Follow-up at [facility] as needed or in 6 weeks for exam)
[2019-06-06] MEDS ORDERED: FERROUS SULFATE 325 MG TAB PO SCH (12:00)
[2019-06-06 13:06] VITALS: BP 115/72
== END 2019-06-06 15:00 | disposition home or self-care (01) | DRG 775 ==
LOC: TRG 20:50 → OBSVTOIN 21:32 → LD 21:32 → APU 22:00 → OB 06-05 09:12
PROVIDERS: ADMIT Obstetrics & Gynecology; ATTEND Obstetrics & Gynecology
PROC: 10E0XZZ Delivery of Products of Conception, External Approach (ICD-10-PCS; principal; 2019-06-05)
PROC: 3E0R3BZ Introduction of Anesthetic Agent into Spinal Canal, Percutaneous Approach (ICD-10-PCS; 2019-06-05)
PROC: 00HU33Z Insertion of Infusion Device into Spinal Canal, Percutaneous Approach (ICD-10-PCS; 2019-06-05)
DX: O60.14X0 Preterm labor third trimester with preterm delivery third trimester, not applicable or unspecified (principal); O99.02 Anemia complicating childbirth; D64.9 Anemia, unspecified; O99.12 Other diseases of the blood and blood-forming organs and certain disorders involving the immune mechanism complicating childbirth; Z3A.35 35 weeks gestation of pregnancy; D72.829 Elevated white blood cell count, unspecified; Z37.0 Single live birth; O99.324 Drug use complicating childbirth; F12.90 Cannabis use, unspecified, uncomplicated
CPT/HCPCS: 36415; 76815; 76816; 76819; 80307; 81001; 83036; 85014; 85018; 85025; 85027; 86592; 86706; 86762; 86803; 86850; 86900; 86901; 87806; 88307; G0378; J0290; J0690; J0702; J2405; J2590; J3010; J3490; J7120

== ENCOUNTER 2021-05-04 17:45 | Outpatient (CLI) | payer OTHER ==
[2021-05-04 18:09] VITALS: BP 120/65
--- NOTE | 2021-05-04 19:49 | Ultrasound Report ---
Limited obstetrical ultrasound INDICATION: Amniotic fluid volume assessment, 36 week 5 day COMPARISON: None recent FINDINGS: Cephalic position. heart rate 136. EVERARDO within normal limits at 9.9 cm. BIOPHYSICAL PROFILE breathing movements: 2/2 movements: 2/2 posture and tone tone: 2/2 Qualitative amniotic fluid volume: 2/2 Total score: 8/8, within normal limits Signer Name: Deng Deshpande MD Signed: 05/04/2021 7:45 PM Workstation Name: [id number]
[2021-05-04 19:57] LABS: Bacteria,Urine 1+ /HPF (Negative); Bilirubin,Urine NEG (Negative); Blood,Urine NEG (Negative); Color,Urine Yellow (Yellow); Mucus,Urine FEW /HPF; Protein,Urine <15 mg/dL mg/dL (Negative); Urobilinogen,Urine < 2.0 mg/dL (<2.0)
[2021-05-04] MEDS ORDERED: FLUCONAZOLE 200 MG TAB PO ONE (20:30)
--- NOTE | 2021-05-04 22:08 | Ultrasound Report ---
Limited obstetrical ultrasound INDICATION: weight assessment, 36 week 5 day COMPARISON: Tonight FINDINGS: Intrauterine . Cephalic position. heart rate 141 bpm. Amniotic fluid volume evaluated earlier tonight. No obvious anomalies but not an anatomical study. Placenta anterior and fr ee of internal cervical os. BPD 8.82 cm, 35 weeks 5 days. Head circumference 31.04 cm, 34 weeks 5 days Abdominal circumference 29.72 cm, 33 weeks 5 days Femur length 6.15 cm, 31 weeks 6 days Estimated weight 220 2 g +/- 3 126 g, 2nd percentile Cephalic index elevated at 88.7 compared to upper end of normal range of 83.0. Femur length to BPD de creased at 69.7 compared to lower range of normal 72.3. Signer Name: Deng Deshpande MD Signed: 05/04/2021 10:03 PM Workstation Name: [id number]
[2021-05-05] MEDS ORDERED: FLUCONAZOLE 100 MG TAB PO ONE (20:21)
== END 2021-05-04 23:02 | disposition home or self-care (01) ==
LOC: APU 17:45 → TRG 17:45
PROVIDERS: ATTEND Obstetrics & Gynecology
DX: O36.8130 Decreased fetal movements, third trimester, not applicable or unspecified (principal); Z3A.36 36 weeks gestation of pregnancy
CPT/HCPCS: 36415; 76815; 76816; 76819; 81001; 84112; 87086

== ENCOUNTER 2021-05-05 06:50 | Inpatient (IN) | payer OTHER ==
[2021-05-05] MEDS ORDERED: LACTATED RINGERS 1,000 ML ONE (06:59)
[2021-05-05] MEDS ORDERED: METHYLERGONOVINE MALEATE 0.2 MG/ML VIAL IM PRN (07:21)
[2021-05-05] MEDS ORDERED: LOPERAMIDE 2 MG CAP PO PRN (07:21)
[2021-05-05] MEDS ORDERED: AMPICILLIN/NS 2 GM/100 ML 2 GM/100 ML BAG IV ONE (07:21)
[2021-05-05] MEDS ORDERED: MINERAL OIL 30 ML ORAL LIQD PO PRN (07:21)
[2021-05-05] MEDS ORDERED: LIDOCAINE (2%) 20 MG/1 ML VIAL 20 ML MDV INFILTRATI ONE (07:21)
[2021-05-05] MEDS ORDERED: TERBUTALINE 1 MG/1 ML INJ SUB-Q PRN (07:21)
[2021-05-05] MEDS ORDERED: OXYTOCIN 10 UNIT/1 ML INJ IM PRN (07:21)
[2021-05-05] MEDS ORDERED: BUTORPHANOL 2 MG/1 ML INJ IV PRN (07:21)
[2021-05-05] MEDS ORDERED: fentaNYL 100 MCG/2 ML INJ IV PRN (07:21)
[2021-05-05] MEDS ORDERED: miSOPROStol 200 MCG TAB PR PRN (07:21)
[2021-05-05] MEDS ORDERED: CARBOPROST TROMETHAMINE 250 MCG/1 ML INJ IM PRN (07:21)
[2021-05-05] MEDS ORDERED: ePHEDrine SULFATE 50 MG/1 ML INJ IV PRN ×2 (07:21→08:36)
[2021-05-05] MEDS ORDERED: ACETAMINOPHEN 325 MG TAB PO PRN (07:21)
[2021-05-05] MEDS ORDERED: LACTATED RINGERS 1,000 ML IV SCH (07:30)
[2021-05-05 07:43] LABS: Hematocrit 35.4 % (30.3-42.9); Hemoglobin 11.2 gm/dl (10.1-14.3); Mean Corpuscular HGB Conc 32 % (30-34); Mean Corpuscular Volume 81 fl (79-97); Platelet Count 207 K/mm3 (140-440); Red Blood Count 4.37 M/mm3 (3.65-5.03); Red Cell Distribution Width 14.1 % (13.2-15.2)
--- NOTE | 2021-05-05 07:58 | History and Physical Report ---
History of Present Illness Date of admission: 05/05/21 07:03 Chief complaint: Contractions History of present illness: 20 year old presents to L&D with complaint of contractions. Patient was admitted for delivery due to advanced cervical dilation. Patient states she receives care at [facility]. No records are available. Patient states her LMP might have been in July 2020 but she is uncertain. She states her EDC is 05/27/21 based on 13 week US. significant for the following: GBS unknown, intermittent insufficient care--pt. states she missed a number of visits, marijuana use during , no records available, history of genital herpes and has not been taking suppressive medication regularly (patient denies lesions or prodromal symptoms). labs were drawn upon admission. History of a previous vaginal in 2019. Past History Past Medical History: no pertinent history Past Surgical History: no surgical history MEDICAL PATHOLOGIST History: herpes (history of herpes, has not been compliant with suppressive medication; denies lesions or prodromal symptoms) Family/Genetic History: diabetes Social history: lives with family, smoking (marijuana), full code - Obstetrical History Expected Date of Delivery: 05/27/21 Actual Gestation: 36 Week(s) 6 Day(s) : 2 Para: 1 Hx # Term Pregnancies: 1 Number of Pregnancies: 0 Spontaneous Abortions: 0 Induced : 0 Number of Living Children: 1 Medications and Allergies Allergies Allergy/AdvReac Type Severity Reaction Status Date / Time No Known Allergies Allergy Verified 05/05/21 07:37 Home Medications Medication Instructions Recorded Confirmed Last Taken Type No Known Home Medications [No 05/05/21 05/05/21 Unknown History Reported Home Medications] Active Meds: Active Medications Acetaminophen (Acetaminophen 325 Mg Tab) 650 mg PO Q4H PRN PRN Reason: Pain, Mild (1-3) Butorphanol Tartrate (Butorphanol 2 Mg/1 Ml Inj) 1 mg IV Q2H PRN PRN Reason: Pain, Moderate(4-6) LABOR PAIN Carboprost Tromethamine (Carboprost Tromethamine 250 Mcg/1 Ml Inj) 250 mcg IM ONCE PRN PRN Reason: Uterine Bleeding Ephedrine Sulfate (Ephedrine Sulfate 50 Mg/1 Ml Inj) 10 mg IV Q2M PRN PRN Reason: Hypotension Fentanyl (Fentanyl 100 Mcg/2 Ml Inj) 100 mcg IV Q2H PRN PRN Reason: Pain,Severe (7-10) LABOR PAIN Oxytocin/Sodium Chloride (Pitocin/Ns 30 Unit/500ml) 30 units in 500 mls @ 2 mls/hr IV TITR BRITNEY; Protocol Lactated Ringer's (Lactated Ringers) 1,000 mls @ 125 mls/hr IV DIRECT BRITNEY Oxytocin/Sodium Chloride (Pitocin/Ns 30 Unit/500ml) 30 units in 500 mls @ 40 mls/hr IV TITR BRITNEY; Protocol Ampicillin Sodium (Ampicillin/Ns 2 Gm/100 Ml) 2 gm in 100 mls @ 100 mls/hr IV ONCE ONE; Protocol Stop: 05/05/21 08:20 Ampicillin Sodium (Ampicillin/Ns 1 Gm/50 Ml) 1 gm in 50 mls @ 100 mls/hr IV Q4H BRITNEY; Protocol Loperamide HCl (Loperamide 2 Mg Cap) 2 mg PO ONCE PRN PRN Reason: give with Hemabate Methylergonovine Maleate (Methylergonovine Maleate 0.2 Mg/Ml Vial) 0.2 mg IM ONCE PRN PRN Reason: Uterine Bleeding Mineral Oil (Mineral Oil 30 Ml Oral Liqd) 30 ml PO QHS PRN PRN Reason: Constipation Misoprostol (Misoprostol 200 Mcg Tab) 800 mcg MO ONCE PRN PRN Reason: Uterine Bleeding Oxytocin (Oxytocin 10 Unit/1 Ml Inj) 10 unit IM ONCE PRN PRN Reason: Uterine Bleeding Terbutaline Sulfate (Terbutaline 1 Mg/1 Ml Inj) 0.25 mg SUB-Q ONCE PRN PRN Reason: Hyperstimulation/Hypertonicity Review of Systems All systems: negative (contractions) - Vital Signs Vital signs: Vital Signs Pulse BP Pulse Ox 99 H 132/78 100 05/05/21 07:09 05/05/21 07:09 05/05/21 07:09 Temp Pulse Resp BP Pulse Ox 98.3 F 110 H 24 132/74 98 05/05/21 07:14 05/05/21 07:55 05/05/21 07:14 05/05/21 07:55 05/05/21 07:52 - Physical Exam Abdomen: Positive: normal appearance, soft. Negative: distention, tenderness, guarding, rigidity Genitourinary (Female): Positive: normal external genitalia, normal perenium. Negative: perineal/vulvar lesions (no lesions seen on careful exam with bright light upon admission) Vagina: Positive: normal moisture Uterus: Positive: enlarged. Negative: tender Anus/Rectum: Positive: normal perianal skin Extremities: Negative: normal, tenderness - Obstetrical FHR: category 2 Uterine Contraction Monitor Mode: External Cervical Dilatation: 8 Cervical Effacement Percentage: 100 (BBOW) station: -1 Uterine Contraction Pattern: Regular Uterine Contraction Intensity: Strong/Firm Results Result Diagrams: 05/05/21 07:00 Abnormal lab results 05/05/21 Range/Units 07:00 WBC 17.7 H (4.5-11.0) K/mm3 MCH 26 L (28-32) pg All other labs normal. Assessment and Plan A: at 36 weeks, 6 days gestation. Active labor, advanced cervical dilation. GBS unknown. History of herpes with no current lesions or prodromal symptoms. No records available. Sporadic care. Use of marijuana during . P: Admit. Continuous EFM. GBS prophylaxis. Request records (requested). labs drawn upon admission. Case management consult after delivery.
[2021-05-05] MEDS ORDERED: OXYTOCIN DRIP 30 UNITS/500 ML BAG IV SCH ×2 (08:00)
--- NOTE | 2021-05-05 08:15 | Anesthesia Consultation ---
Anesthesia Consult and Med Hx Date of service: 05/05/21 - Airway Anesthetic Teeth Evaluation: Good ROM Head & Neck: Adequate Mental/Hyoid Distance: Adequate Mallampati Class: Class II Intubation Access Assessment: Probably Good - Pulmonary Exam CTA: Yes - Cardiac Exam Cardiac Exam: RRR - Pre-Operative Health Status ASA Pre-Surgery Classification: ASA2 Proposed Anesthetic Plan: Epidural - Pulmonary Hx Smoking: No Hx Asthma: No COPD: No Hx Pneumonia: No Hx Sleep Apnea: No - Cardiovascular System Hx Hypertension: No Hx Heart Attack/AMI: No Hx Angina: No - Central Nervous System Hx Seizures: No Hx Psychiatric Problems: No - Gastrointestinal Hx Gastroesophageal Reflux Disease: No - Endocrine Hx Renal Disease: No Hx End Stage Renal Disease: No Hx Liver Disease: No Hx Insulin Dependent Diabetes: No Hx Non-Insulin Dependent Diabetes: No Hx Hypothyroidism: No Hx Hyperthyroidism: No - Hematic Hx Anemia: Yes ( Hx Sickle Cell Disease: No - Other Systems Hx Alcohol Use: No Hx Obesity: Yes
--- NOTE | 2021-05-05 08:16 | Progress Note ---
Labor Epidural - Labor Epidural Start Time: 07:55 Stop Time: 08:13 Performed by:: ILEANA SANTIAGO (Shaneka NICHOLSON) Procedure: Patient is requesting epidural for labor and pain. H&P, labs were reviewed. Patient IDed, all questions and concerns were answered, and consent was signed. Timeout was performed at bedside. Patient in sitting position. Sterile prep and drape was performed. 3ml of 1% lidocaine skin wheal at L[3]- L [4]. 17-gau ge Tuohy epidural needle was advanced to loss of resistance with air technique 7cm. Negative CSF negative blood. Epidural catheter advanced to [12] centimeters. [negative] Aspiration [negative] test dose. Sterile dressing applied. Patient tolerated procedure.
[2021-05-05] MEDS ORDERED: diphenhydrAMINE 50 MG/ML VIAL IV PRN (08:36)
[2021-05-05] MEDS ORDERED: ONDANSETRON 4 MG/2 ML INJ IV PRN ×2 (08:36→09:50)
[2021-05-05] MEDS ORDERED: NALOXONE 2 MG/2 ML INJ IV PRN (08:36)
[2021-05-05] MEDS ORDERED: NalbUPHINE 10 MG/1 ML INJ IV PRN (08:36)
[2021-05-05] MEDS ORDERED: LACTATED RINGERS 250 ML IV SOLN IV ONE (08:36)
[2021-05-05] MEDS ORDERED: fentaNYL-BUPIV 2 MCG/ML-0.125% 200 MCG/100 ML BAG EPIDURAL SCH (09:00)
[2021-05-05] MEDS ORDERED: BENZOCAINE/MENTHOL 20/0.5% TOP SPRAY 56 GM TP PRN (09:50)
[2021-05-05] MEDS ORDERED: MAGNESIUM HYDROXIDE (MOM) ORAL LIQD UDC PO PRN (09:50)
[2021-05-05] MEDS ORDERED: diphenhydrAMINE 25 MG CAP PO PRN (09:50)
[2021-05-05] MEDS ORDERED: LANOLIN/ZINC/DIMETHICONE (LANSINOH) 7 GM TP PRN (09:50)
[2021-05-05] MEDS ORDERED: WITCH HAZEL/ GLYCERIN PAD TP PRN (09:50)
--- NOTE | 2021-05-05 09:59 | Procedure Note ---
OB Delivery Note - Delivery Date of Delivery: 05/05/21 Surgeon: LOUIE CALABRESE Estimated blood loss: other (150 cc) - Vaginal Delivery presentation: vertex Delivery position: OA Intrapartum events: labor-<37 weeks, precipitous labor- <3hr Delivery induction: none Delivery monitor: external FHT, external uterine Route of delivery: Delivery placenta: spontaneous Delivery cord: other (short cord) Delivery laceration: none Anesthesia: epidural Delivery comments: Spontaneous vaginal delivery at 09:05 of liveborn female weighing 5 lb. 15 oz. over intact perineum with apgars of 8/9. Epidural anesthesia. Late gestation (36 weeks, 6 days). STACI attended delivery. was atraumatic; baby was placed immediately on mom's abdomen after delivery. Short cord noted. Baby was suctioned with bulb syringe and dried. 3 vessel cord double clamped and cut and baby taken to radiant warmer for further suctioning. Spontaneous cry and respirations. Spontaneous delivery of intact placenta and membranes at 09:19. EBL 150 cc. Pitocin to IV fluids. Fundus firm and midline below the umbilicus. No lacerations noted. Vaginal sweep negative. Sponge count correct. Mother and baby stable in birthing room.
[2021-05-05] MEDS ORDERED: AMPICILLIN/NS 1 GM/50 ML 1 GM/50 ML BAG IV SCH (11:30)
[2021-05-05 11:39] LABS: Hepatitis C Virus Antibody Non-Reactive (NonReactive)
[2021-05-05] MEDS: IBUPROFEN 600 MG TAB PO SCH ×2 (14:40→21:46)
[2021-05-05 17:51] LABS: Bilirubin,Urine NEG (Negative); Blood,Urine LG (Negative); Color,Urine Red (Yellow); Urobilinogen,Urine < 2.0 mg/dL (<2.0)
[2021-05-05 17:52] LABS: RBC,Urine > 182.0 /HPF (0.0-6.0)
[2021-05-05 18:09] LABS: Amphetamine Screen,Urine Negative; Benzodiazepines Screen,Urine Negative; Cocaine Screen,Urine Negative; Methadone Screen,Urine Negative; Opiate Screen,Urine Negative
[2021-05-05 18:24] LABS: Cannabinoid Screen,Urine Positive
[2021-05-05] MEDS: DOCUSATE SODIUM 100 MG CAP PO SCH (21:45)
[2021-05-05] MEDS: AMOXICILLIN/K CLAV 875/125MG TAB PO SCH (21:46)
[2021-05-06] MEDS: IBUPROFEN 600 MG TAB PO SCH ×4 (04:59→20:21)
[2021-05-06 06:28] LABS: Hematocrit 31.3 % (30.3-42.9); Mean Corpuscular HGB Conc 32 % (30-34); Mean Corpuscular Volume 81 fl (79-97); Platelet Count 174 K/mm3 (140-440); Red Blood Count 3.86 M/mm3 (3.65-5.03); Red Cell Distribution Width 14.1 % (13.2-15.2)
[2021-05-06] MEDS: AMOXICILLIN/K CLAV 875/125MG TAB PO SCH (10:00)
[2021-05-06] MEDS: PRENATAL VIT27-FE FUMARATE-FOLIC ACID VIT TAB PO SCH (10:01)
[2021-05-06] MEDS: FERROUS SULFATE 325 MG TAB PO SCH ×2 (10:01→22:20)
[2021-05-06] MEDS: DOCUSATE SODIUM 100 MG CAP PO SCH ×2 (10:01→22:20)
--- NOTE | 2021-05-06 10:55 | Progress Note ---
Assessment and Plan A: PP Day #1 Asymptomatic Anemia P: Follow Routine Orders Continue FeSO4 325mg PO BID D/C Home in the AM RTO in 6 Weeks Subjective - Subjective Date of service: 05/06/21 Patient reports: appetite normal, voiding normally, pain well controlled, flatus, ambulating normally [place]: doing well, bottle feeding (and ) Objective - Vital Signs Latest vital signs: Vital Signs Temp Pulse Resp BP BP Pulse Ox Pulse Ox 05/06/21 09:53 97.6 F 79 20 100/51 100 05/06/21 04:59 18 05/06/21 01:37 98.0 F 84 20 118/56 100 05/05/21 21:46 18 05/05/21 21:06 98.1 F 83 20 99/44 99 05/05/21 19:30 98 05/05/21 14:57 98.0 F 74 18 128/69 99 05/05/21 11:15 98.4 F 78 20 106/51 98 98 Intake and Output 05/05/21 05/06/21 05/06/21 22:59 06:59 14:59 Intake Total 240 360 320 Output Total 800 Balance -560 360 320 Intake: Oral 240 360 320 Output: Urine 800 Void 800 Other: Total, Intake Amount 240 240 320 Total, Output Amount 400 # Voids Void 1 1 1 - Exam Breasts: Present: normal Cardiovascular: Present: Regular rate Lungs: Present: Clear to auscultation, Normal air movement Abdomen: Present: normal appearance, soft, normal bowel sounds Uterus: Present: normal, firm, fundal height below umbilicus Extremities: Present: normal - Labs Labs: Abnormal lab results 05/05/21 05/06/21 Range/Units 17:00 05:45 WBC 16.3 H (4.5-11.0) K/mm3 Hgb 10.0 L (10.1-14.3) gm/dl MCH 26 L (28-32) pg Urine pH 9.0 H (5.0-7.0) Urine WBC (Auto) 145.0 H (0.0-6.0) /HPF
--- NOTE | 2021-05-06 10:56 | Discharge Summary ---
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 Comment:: Use of marijuana during ; poor care Primary care physician: ZAINAB DAMIAN Hospitalization Reason for admission: labor Delivery: Episiotomy: none Laceration: none Other procedures: none complications: none Discharge diagnosis: delivery baby: female Condition at discharge: Good Disposition: 01 HOME / SELF CARE / HOMELESS Plan - Provider Discharge Summary Activity: routine, no sex for 6 weeks, no heavy lifting 4 weeks, no strenuous exercise Diet: routine Instructions: routine Additional instructions: [] Smoking cessation referral if applicable(refer to patient education folder for contact #) [] Refer to [facility]'s [facility] Booklet Call your doctor immediately for: * Fever > 100.5 * Heavy vaginal bleeding ( >1 pad per hour) * Severe persistent headache * Shortness of breath * Reddened, hot, painful area to leg or breast * Drainage or odor from incision. * Keep incision clean and dry at all times and follow doctor's instructions regarding bathing/showering - Follow up plan Follow up: ZAINAB DAMIAN MD [Primary Care Provider] - 6 Weeks
[2021-05-07] MEDS: IBUPROFEN 600 MG TAB PO SCH (05:58)
--- NOTE | 2021-05-07 09:04 | Progress Note ---
Assessment and Plan Stable for discharge to home [facility] MD Subjective - Subjective Date of service: 05/07/21 Patient reports: appetite normal, voiding normally, pain well controlled, ambulating normally [facility]: doing well Objective - Vital Signs Latest vital signs: Vital Signs Temp Pulse Resp BP BP Pulse Ox Pulse Ox 05/07/21 00:35 97.7 F 65 18 108/71 99 05/06/21 22:39 100 05/06/21 16:30 98.4 F 79 20 113/76 100 05/06/21 09:53 97.6 F 79 20 100/51 100 Intake and Output 05/06/21 05/07/21 05/07/21 23:59 07:59 15:59 Intake Total 560 Balance 560 Intake: Oral 560 Other: Total, Intake Amount 320 # Voids Void 1 1 - Exam Breasts: Present: deferred Cardiovascular: Present: Regular rate Lungs: Present: Clear to auscultation Abdomen: Present: normal appearance, soft, normal bowel sounds Uterus: Present: fundal height below umbilicus Extremities: Present: normal Deep Tendon Reflex Grade: Normal +2
[2021-05-07 09:10] VITALS: BP 113/68
[2021-05-07] MEDS: FERROUS SULFATE 325 MG TAB PO SCH (09:51)
[2021-05-07] MEDS: PRENATAL VIT27-FE FUMARATE-FOLIC ACID VIT TAB PO SCH (09:51)
[2021-05-07] MEDS: DOCUSATE SODIUM 100 MG CAP PO SCH (09:51)
== END 2021-05-07 11:20 | disposition home or self-care (01) | DRG 774 ==
LOC: TRG 06:50 → LD 07:03 → OB 12:01
PROVIDERS: ADMIT Obstetrics & Gynecology; ATTEND Obstetrics & Gynecology
PROC: 10E0XZZ Delivery of Products of Conception, External Approach (ICD-10-PCS; principal; 2021-05-05)
PROC: 3E0R3BZ Introduction of Anesthetic Agent into Spinal Canal, Percutaneous Approach (ICD-10-PCS; 2021-05-05)
PROC: 00HU33Z Insertion of Infusion Device into Spinal Canal, Percutaneous Approach (ICD-10-PCS; 2021-05-05)
DX: O60.14X0 Preterm labor third trimester with preterm delivery third trimester, not applicable or unspecified (principal); O98.32 Other infections with a predominantly sexual mode of transmission complicating childbirth; Z3A.36 36 weeks gestation of pregnancy; Z37.0 Single live birth; Z20.822 Contact with and (suspected) exposure to COVID-19; A60.00 Herpesviral infection of urogenital system, unspecified; O99.214 Obesity complicating childbirth; O90.81 Anemia of the puerperium
CPT/HCPCS: 36415; 59025; 76815; 76816; 76819; 80307; 81001; 84112; 85027; 86592; 86706; 86762; 86803; 86850; 86900; 86901; 87086; 87210; 87806; 96360; G0378; U0003